=== PATIENT | male | born 1970 | race Caucasian/White ===

== ENCOUNTER → 2016-05-24 | Outpatient (CLI) | payer OTHER ==
[2016-05-25 09:48] LABS: PROSTATE SPECIFIC ANTIGEN 1.1 ng/mL (0.0-4.0); PSA % FREE 22.7 % (.); PSA FREE 0.25 ng/mL
== END ==
LOC: OD 09:05
PROVIDERS: ATTEND Urology
DX: N40.1 Benign prostatic hyperplasia with lower urinary tract symptoms (principal)
CPT/HCPCS: 36415; 84154

== ENCOUNTER → 2017-06-05 | Outpatient (CLI) | payer OTHER ==
[2017-06-06 07:15] LABS: PROSTATE SPECIFIC ANTIGEN 1.6 ng/mL (0.0-4.0); PSA % FREE 17.5 % (.); PSA FREE 0.28 ng/mL
== END ==
LOC: OD 15:06
PROVIDERS: ATTEND Urology
DX: N40.1 Benign prostatic hyperplasia with lower urinary tract symptoms (principal)
CPT/HCPCS: 36415; 84154

== ENCOUNTER → 2018-02-22 | Outpatient (CLI) | payer OTHER | LOC: OD 13:22 | PROVIDERS: ATTEND Otolaryngology | DX: H69.81 Other specified disorders of Eustachian tube, right ear (principal); J30.9 Allergic rhinitis, unspecified | CPT/HCPCS: 36415; 82785; 86003 ==